=== PATIENT | female | born 2000 | race Caucasian/White ===

== ENCOUNTER 2020-09-29 03:11 | Observation (INO) | payer OTHER ==
[~2020-09-29] VITALS: Ht 160 cm; Wt 59.0 kg
[~2020-09-29 03:11] MED LIST: COLACE 100MG C100 MG PO; IBUPROFEN600 MG PO; PRENATAL VITAM1 EAC8 PO
[2020-09-29 03:44] LABS: HEMOGLOBIN 13.1 gm/dl (12.3-15.3); RED BLOOD COUNT 4.9 M/UL (4.00-5.10); WHITE BLOOD COUNT 8.9 K/UL (4.5-11.0)
[2020-09-29 04:05] LABS: BUN/CREATININE RATIO 15 (0-10)
[2020-09-29 12:46] LABS: HEMOGLOBIN 12.9 gm/dl (12.3-15.3)
[2020-09-30 08:41] LABS: HEMOGLOBIN 13.2 gm/dl (12.3-15.3); RED BLOOD COUNT 4.8 M/UL (4.00-5.10)
[2020-09-30 09:05] LABS: BUN/CREATININE RATIO 12 (0-10)
[2020-10-01] MEDS ORDERED: HYDROCODON-ACE1 EAC4 PO (12:02)
== END 2020-10-01 12:51 | disposition home or self-care (01) ==
LOC: ER1 03:11 → M/S 09:04 → CDU 09:04 → M/S 18:12
PROVIDERS: Emergency Medicine; Family Medicine; ADMIT Surgery
DX: O9A.211 Injury, poisoning and certain other consequences of external causes complicating pregnancy, first trimester (principal); S36.113A Laceration of liver, unspecified degree, initial encounter; S62.625A Displaced fracture of middle phalanx of left ring finger, initial encounter for closed fracture; Z20.828 Contact with and (suspected) exposure to other viral communicable diseases; Z3A.01 Less than 8 weeks gestation of pregnancy; V49.9XXA Car occupant (driver) (passenger) injured in unspecified traffic accident, initial encounter
CPT/HCPCS: 36415; 51702; 70450; 71045; 72070; 72100; 72125; 73080; 73130; 76705; 80053; 80307; 81001; 83605; 84702; 84703; 85014; 85018; 85025; 85027; 85610; 85730; 86850; 86900; 86901; 99285; G0378; G0480; Q9967; U0002

== ENCOUNTER 2021-03-11 18:38 | Outpatient (CLI) | payer OTHER ==
[~2021-03-11 18:38] MED LIST changes: +HYDROCODON-ACE1 EAC4 PO
== END 2021-03-11 22:18 | disposition home or self-care (01) ==
LOC: GENOP 18:38
DX: O09.899 Supervision of other high risk pregnancies, unspecified trimester (principal)
CPT/HCPCS: 81001; G0463

== ENCOUNTER 2021-04-16 19:21 | Inpatient (IN) | payer OTHER ==
[~2021-04-16] VITALS: Ht 160 cm; Wt 77.1 kg
[2021-04-18] MEDS ORDERED: PRENATAL VITAM1 EAC6 PO (18:39)
[2021-04-18] MEDS ORDERED: FERROUS SULFAT325 M2 PO (18:40)
== END 2021-04-19 13:05 | disposition home or self-care (01) | DRG 807 ==
LOC: GENOP 19:21 → OB 20:31 → GENOP 20:32 → OB 04-18 16:38
PROVIDERS: ADMIT Obstetrics & Gynecology
PROC: 4A1HXCZ Monitoring of Products of Conception, Cardiac Rate, External Approach (ICD-10-PCS; principal; 2021-04-18)
PROC: 10E0XZZ Delivery of Products of Conception, External Approach (ICD-10-PCS; 2021-04-18)
DX: O80 Encounter for full-term uncomplicated delivery (principal); Z37.0 Single live birth; Z3A.37 37 weeks gestation of pregnancy; Z20.822 Contact with and (suspected) exposure to COVID-19
CPT/HCPCS: 59025; 81001; 96360; 96361; 96367; 96372; 96374; 96376; G0378; J0696; J0702; J2405; J7120

== ENCOUNTER 2021-05-05 16:57 | Inpatient (IN) | payer OTHER ==
[~2021-05-05] VITALS: Ht 160 cm; Wt 77.1 kg
[~2021-05-05 16:57] MED LIST changes: +FERROUS SULFAT325 M2 PO; +PRENATAL VITAM1 EAC6 PO
[2021-05-05 19:24] LABS: HEMOGLOBIN 9.7 gm/dl (12.3-15.3); RED BLOOD COUNT 4.15 M/UL (4.00-5.10); WHITE BLOOD COUNT 13.1 K/UL (4.5-11.0)
[2021-05-06 04:41] LABS: HEMOGLOBIN 9.9 gm/dl (12.3-15.3)
[2021-05-06] MEDS ORDERED: DOCUSATE SODIU100 MG PO (15:45)
[2021-05-06] MEDS ORDERED: IBUPROFEN600 MG PO (15:45)
== END 2021-05-07 14:39 | disposition home or self-care (01) | DRG 807 ==
LOC: GENOP 16:57 → OB 18:12
PROVIDERS: ADMIT Obstetrics & Gynecology
PROC: 4A1HX4Z Monitoring of Products of Conception, Cardiac Electrical Activity, External Approach (ICD-10-PCS; principal; 2021-05-05)
PROC: 10E0XZZ Delivery of Products of Conception, External Approach (ICD-10-PCS; 2021-05-05)
DX: O99.824 Streptococcus B carrier state complicating childbirth (principal); Z37.0 Single live birth; O60.14X0 Preterm labor third trimester with preterm delivery third trimester, not applicable or unspecified; Z3A.36 36 weeks gestation of pregnancy; F32.9 Major depressive disorder, single episode, unspecified; Z20.822 Contact with and (suspected) exposure to COVID-19
CPT/HCPCS: 36415; 81001; 82800; 85014; 85018; 85025; J2590; J7120; U0002

== ENCOUNTER → 2022-01-01 | Outpatient (CLI) | payer OTHER ==
[~2022-01-01] MED LIST changes: +DOCUSATE SODIU100 MG PO
== END ==
LOC: KOH-I 08:40
DX: R79.89 Other specified abnormal findings of blood chemistry (principal); K82.0 Obstruction of gallbladder
CPT/HCPCS: 76705

== ENCOUNTER 2022-05-27 23:42 | Outpatient (CLI) | payer OTHER | END 2022-05-28 00:08 | disposition home or self-care (01) | LOC: GENOP 23:42 | DX: O47.02 False labor before 37 completed weeks of gestation, second trimester (principal); O99.891 Other specified diseases and conditions complicating pregnancy; R51.9 Headache, unspecified; R42 Dizziness and giddiness; R09.89 Other specified symptoms and signs involving the circulatory and respiratory systems; R20.0 Anesthesia of skin; Z3A.22 22 weeks gestation of pregnancy | CPT/HCPCS: G0463 ==